=== PATIENT | male | born 1955 | race Caucasian/White ===

== ENCOUNTER 2023-07-28 16:16 | Emergency (ER) | payer MEDICARE ==
[2023-07-28] MEDS ORDERED: Sodium Chloride 0.9% 2.5 ML Syringe FLUSH PRN (16:26)
[2023-07-28] MEDS ORDERED: Sodium Chloride 0.9% 10 ML Syringe FLUSH PRN (16:26)
[2023-07-28] MEDS ORDERED: Piperacillin/Tazobactam 4.5 GM in Sodium Chloride 0.9% 100 ML IV ONE (16:26)
[2023-07-28] MEDS ORDERED: Sodium Chloride 0.9% 1,000 ML IV ONE ×2 (16:26→18:02)
[2023-07-28 17:37] LABS: BASE EXCESS VENOUS -15.8 (-2.0-3.0); PH,VENOUS 7.25 (7.31-7.41)
[2023-07-28] MEDS ORDERED: Hydrocortisone Sodium Succinate 100 MG/2 ML SDV IVPUSH ONE (17:42)
[2023-07-28 17:46] LABS: APPEARANCE,URINE CLEAR; COLOR,URINE YELLOW; GLUCOSE,URINE NEGATIVE (NEGATIVE); KETONES,URINE TRACE mg/dL (NEGATIVE); LEUKOCYTE ESTERASE,URINE NEGATIVE (NEGATIVE); NITRITE,URINE NEGATIVE (NEGATIVE); OCCULT BLOOD,URINE NEGATIVE (NEGATIVE); PH,URINE 5.5 (5.0-8.0); PROTEIN,URINE TRACE mg/dL (NEGATIVE)
[2023-07-28] MEDS ORDERED: Thiamine 200 MG/2 ML MDV IVPUSH ONE (17:55)
[2023-07-28 17:59] LABS: BILIRUBIN,URINE SMALL (NEGATIVE)
[2023-07-28 18:01] LABS: RBC,URINE 0-2 (0-2/HPF); WBC,URINE 0-2 (0-5/HPF)
[2023-07-28 18:02] LABS: AMORPHOUS SEDIMENT,URINE FEW (NEGATIVE); BACTERIA,URINE FEW (NEGATIVE); EPITHELIAL CELLS,URINE NOT SEEN (NONE-FEW); HYALINE CASTS,URINE 0-2 (0-2/LPF); MUCUS,URINE LIGHT (NONE-MOD)
[2023-07-28 18:03] LABS: HEMATOCRIT 13.4 % (42.0-52.0); MEAN CORPUSCULAR HEMOGLOBIN 25.7 pg (28.0-32.0); MEAN CORPUSCULAR HGB CONC 32.8 g/dL (32.0-36.0); MEAN CORPUSCULAR VOLUME 78.4 fL (83.0-99.0); NRBC ABSOLUTE 0.08 K/uL (0.00-0.02); NRBC PERCENT 2.1 /100WBC (0.0-0.2); PLATELET COUNT,PLT 11 K/uL (150-400); RED BLOOD CELL COUNT 1.71 M/uL (4.52-5.90); WHITE BLOOD CELL COUNT,WBC 3.86 K/uL (3.9-11.3)
[2023-07-28 18:08] LABS: AMPHETAMINES SCREEN, URINE NEGATIVE (CUTOFF=500); BARBITURATE SCREEN,URINE NEGATIVE (CUTOFF=200); BENZODIAZEPINES SCREEN,URINE NEGATIVE (CUTOFF=150); METHADONE SCREEN, URINE NEGATIVE (CUTOFF=200); METHAMPHETAMINES SCREEN, URINE NEGATIVE (CUTOFF=500); OXYCODONE SCREEN,URINE NEGATIVE (CUT0FF=100); PCP SCREEN,URINE NEGATIVE (CUTOFF=25); THC SCREEN,URINE 20 NG/ML NEGATIVE (CUTOFF=50)
[2023-07-28 18:21] LABS: INR 1.67 (0.86-1.11)
[2023-07-28 18:22] LABS: BUPRENORPHINE SCREEN,URINE NEGATIVE (CUTOFF=10)
[2023-07-28 18:30] LABS: CORONAVIRUS COVID-19 NAA NEGATIVE (NEGATIVE); INFLUENZA A NAA NEGATIVE (NEGATIVE); INFLUENZA B NAA NEGATIVE (NEGATIVE); RESPIRATORY SYNCYTIAL VIR NAA NEGATIVE (NEGATIVE)
[2023-07-28] MEDS ORDERED: Norepinephrine Bit/D5W Premix 250 ML IV SCH (18:30)
[2023-07-28 18:31] LABS: LACTIC ACID 1.2 mmol/L (0.4-2.0)
[2023-07-28 18:32] LABS: HEMOGLOBIN 4.4 g/dL (14.0-18.0)
[2023-07-28 18:36] LABS: A/G RATIO 0.7 (0.9-1.6); ALANINE AMINOTRANSFERASE,ALT 13 IU/L (14-63); ALBUMIN 2.5 g/dL (3.4-5.0); ALKALINE PHOSPHATASE 38 U/L (46-116); ASPARTATE AMNIOTRANSFERASE,AST 39 IU/L (15-37); BILIRUBIN TOTAL 1.4 mg/dL (0.2-1.0); BLOOD UREA NITROGEN,BUN 29 mg/dL (7.0-18.0); CALCIUM 7.4 mg/dL (8.5-10.1); CARBON DIOXIDE,CO2 24.6 mmol/L (21.0-32.0); CHLORIDE,CL 101 mmol/L (98-107); CREATININE 2.2 mg/dL (0.8-1.3); EST CRCL DRUG DOSING (CG) 29.55 mL/min; GLUCOSE RANDOM 89 mg/dL (74-106); LIPASE 70 U/L (16-77); MAGNESIUM 2.2 mg/dL (1.8-2.4); POTASSIUM,K 3.7 mmol/L (3.5-5.1); PROTEIN TOTAL,TP 5.9 g/dL (6.4-8.2); SODIUM,NA 135 mmol/L (136-148)
[2023-07-28 18:56] LABS: ESTIMATED GFR 32 mL/min (>60); ETHANOL BLOOD MEDICAL < 3.0 mg/dL; TSH ULTRASENSITIVE 128.09 uIU/mL (0.36-3.74)
[2023-07-28 19:27] LABS: LYMPHOCYTES ABSOLUTE MAN 0.85 K/uL (1.00-4.80); LYMPHOCYTES PERCENT MAN 22 % (24-44); MONOCYTES ABSOLUTE MAN 0.39 K/uL (0.00-0.80); MONOCYTES PERCENT MAN 10 % (0-8); MYELOCYTE ABSOLUTE MAN 0.04; MYELOCYTE PERCENT MAN 1 %; SEG NEUTROPHILS ABSOLUTE MAN 2.59 K/uL (1.80-7.70); SEG NEUTROPHILS PERCENT MAN 67 % (41-71)
[2023-07-28] MEDS ORDERED: Levothyroxine 100 MCG Vial IVPUSH ONE (20:01)
[2023-07-28 21:46] LABS: PTT,PARTIAL THROMBOPLSTIN TIME 52.4 SEC (23.9-30.7)
== END 2023-07-29 01:15 ==
LOC: MW.ED 16:16
DX: I95.9 Hypotension, unspecified (principal); D69.6 Thrombocytopenia, unspecified; E03.9 Hypothyroidism, unspecified; F17.210 Nicotine dependence, cigarettes, uncomplicated; Z20.822 Contact with and (suspected) exposure to COVID-19
CPT/HCPCS: 0241U; 36415; 36430; 51702; 70450; 71045; 71250; 74176; 80053; 80305; 80307; 81001; 82140; 82803; 83605; 83690; 83735; 84439; 84443; 84484; 85025; 85384; 85610; 85730; 86850; 86900; 86901; 86920; 87040; 93005; 96361; 96365; 96366; 96367; 96375; 99291; J1720; J2543; J3411; J3490; J7030; P9016; 93010